=== PATIENT | female | born 1965 | race Caucasian/White ===

== ENCOUNTER → 2023-07-03 06:17 | Day surgery (SDC) | payer BC, SELFPAY | LOC: GI 06:17 | PROVIDERS: ATTENDING PHYSICIAN Internal Medicine | DX: Z12.11 Encounter for screening for malignant neoplasm of colon (principal); K64.8 Other hemorrhoids | CPT/HCPCS: 45378 ==

== ENCOUNTER → 2023-07-04 06:21 | Day surgery (SDC) | payer BC, SELFPAY | LOC: GI 06:21 | PROVIDERS: ATTENDING PHYSICIAN Internal Medicine | DX: Z12.11 Encounter for screening for malignant neoplasm of colon (principal) | CPT/HCPCS: G0121 ==

== ENCOUNTER → 2023-10-06 08:19 | Outpatient (REF) | payer BC, SELFPAY | LOC: WDC 08:19 | PROVIDERS: ATTENDING PHYSICIAN Physician Assistant Medical | DX: Z12.31 Encounter for screening mammogram for malignant neoplasm of breast (principal) | CPT/HCPCS: 77063; 77067 ==

== ENCOUNTER → 2023-10-30 09:10 | Outpatient (REF) | payer BC, SELFPAY | LOC: WDC 09:10 | PROVIDERS: ATTENDING PHYSICIAN Physician Assistant Medical | DX: R92.8 Other abnormal and inconclusive findings on diagnostic imaging of breast (principal) | CPT/HCPCS: 76642 ==

== ENCOUNTER 2024-07-13 11:18 | Emergency (ER) | payer BC, SELFPAY ==
[2024-07-13 11:35] VITALS: BP 141/93
[2024-07-13 11:55] VITALS: BMI 39.5
--- NOTE | 2024-07-13 12:11 | ED.GENMED ---
History of Present Illness
General
Chief Complaint: Skin Surface Trauma
Source: patient
Exam Limitations: none
Time Seen by Provider: 07/13/24 11:43
Nursing documentation reviewed up to this point in time: agreed with
History of Present Illness
History of Present Illness:
58 yr old female presents to the ED for evaluation of left fourth finger laceration. Patient reports a toaster started to fall on her left fourth finger got caught in the toaster. She reports she sustained a laceration and the wound has been
persistently bleeding.
She is right-hand dominant. She is up-to-date on tetanus.
Review of Systems
Review of Systems
Allergies reviewed?: Yes
All Other Systems: ROS reviewed and negative except as documented in HPI and ROS
Constitutional: Reports no symptoms
Musculoskeletal: Reports other (left 4th finger laceration )
Skin: Reports no symptoms
Neurological: Reports no symptoms
Psychiatric: Reports no symptoms
Phy Exam
General Physical Exam
General Presentation: no apparent distress
General age: appears stated age
General Skin: warm and dry
General Habitus: normal
General Mental: alert
General Hydration: appears well hydrated
Neurological Exam
Neurological Exam: alert and oriented x3
Musculoskeletal Exam
Musculoskeletal Exam: other (lue with strong pulses + 1.5 cm laceration to distal phlaynx medial aspect of 4th finger through the subcutaneous tissue only bony tenderness full flexion extension no swelling)
Skin Exam
Skin Exam: normal color and warm/dry
Psychiatric Exam
Psychiatric Exam: normal mood/affect
Course
Vital Signs
Initial and Last Documented VS:
Initial Vital Signs
Temp Pulse Resp BP Pulse Ox
98 F 69 16 141/93 98
07/13/24 11:35 07/13/24 11:35 07/13/24 11:35 07/13/24 11:35 07/13/24 11:35
Last Documented Vital Signs
Temp Pulse Resp BP Pulse Ox
98 F 69 16 141/93 98
07/13/24 11:35 07/13/24 11:35 07/13/24 11:35 07/13/24 11:35 07/13/24 11:35
Procedures
Laceration Closure
Left Distal Third Finger:
Status of Wound: clean
Size of Wound in cm: 1.5
Description of Wound Edges: sharp
Preparation: cleaned with saline
Anesthesia: 1% Lidocaine and Digital-Regional
Revision/Debridement: routine- no revision
Wound exploration: no tendon involvement
Type of Closure: single layer closure and interrupted sutures
Skin Closure Material: 5-0 nylon
Number of sutures: 2
MDM/Problems Addressed
MDM/Problems Addressed:
Patient is a 4-year-old female who sustained a simple laceration to the left fourth finger. Wound was irrigated with saline no tendon visible or tendon deficit full flexion extension no bony tenderness. Tetanus is up-to-date. Wound sutured as
documented wound care reviewed.
*Pulse Oximetry
Patient hypoxic: no
*Critical Care Note
Total Time (30-74mins, 75-104mins- exclusive of procedures): Not Applicable
ED Attending Note
-
Portions of this chart may have been created with voice recognition software.� Occasional wrong word or��sound alike� substitutions may have occurred due to the inherent limitations of voice recognition software.
Discharge Plan
Departure
Patient Disposition: Home (Routine Discharge)
Date of Disposition: 07/13/24
Time of Disposition: 12:37
Patient with high blood pressure during this ER visit?: Yes
Covid-19: Not Applicable
Discharge Problem:
Finger laceration
Instructions: Laceration Repair With Stitches (DC), BLOOD PRESSURE
Prescriptions:
No Action
No Current Medications
0
Referrals:
Yessy Unger PA-C [Family Provider] -
Activity Restrictions/Additional Instructions:
Keep wound clean and dry for 24 hours after 24 hours wash twice daily soap and water pat dry apply small layer of antibiotic with to the area. Do wound care twice a day. See family doctor as needed 2 days for wound check and sutures are to be
removed in 10 days. Return if any signs of infection of increased pain swelling redness drainage fever chills
Interventions
Interventions:
*Risk Screen - Suicide Last Done: 07/13/24 11:37
*General Assessment Last Done: 07/13/24 11:40
*Neglect/Abuse Screening Last Done: 07/13/24 11:37
*ED- Fall Risk Assessment Last Done: 07/13/24 11:40
*ED COVID-19 Vaccine History Last Done: 07/13/24 11:40
ED-Skin Assessment Last Done: 07/13/24 11:40
Discharge Date and Time
Print Language: LATVIAN
== END 2024-07-13 12:43 | disposition home or self-care (01) ==
LOC: EMR 11:18
PROVIDERS: EMERGENCY PHYSICIAN Emergency Medicine; FAMILY PHYSICIAN Physician Assistant Medical
DX: S61.215A Laceration without foreign body of left ring finger without damage to nail, initial encounter (principal); W19.XXXA Unspecified fall, initial encounter; W23.1XXA Caught, crushed, jammed, or pinched between stationary objects, initial encounter
CPT/HCPCS: 12001; 99282